=== PATIENT | female | born 1985 | race Caucasian/White ===

== ENCOUNTER 2021-02-12 09:16 | Emergency (ER) | payer MEDICAID ==
[~2021-02-12] VITALS: Ht 160 cm; Wt 95.5 kg
[2021-02-12 09:58] VITALS: BP 155/103
== END 2021-02-12 11:51 | disposition home or self-care (01) ==
LOC: ER 09:17
DX: M79.675 Pain in left toe(s) (principal)
CPT/HCPCS: 73660; 99283

== ENCOUNTER 2021-08-07 15:48 | Emergency (ER) | payer MEDICAID ==
[~2021-08-07] VITALS: Ht 160 cm; Wt 90.9 kg
[~2021-08-07 15:48] MED LIST: BUPR100T13 PO; DOCU100C40 PO; VALA500T PO
[2021-08-07 18:29] VITALS: BP 142/96
== END 2021-08-07 19:55 | disposition home or self-care (01) ==
LOC: ER 15:48
DX: H65.93 Unspecified nonsuppurative otitis media, bilateral (principal); R42 Dizziness and giddiness; R11.0 Nausea; R20.2 Paresthesia of skin; G43.909 Migraine, unspecified, not intractable, without status migrainosus; Z79.899 Other long term (current) drug therapy; Z79.2 Long term (current) use of antibiotics; Z90.49 Acquired absence of other specified parts of digestive tract
CPT/HCPCS: 93005; 99283

== ENCOUNTER 2023-03-30 01:39 | Emergency (ER) | payer MEDICAID ==
[~2023-03-30] VITALS: Ht 160 cm; Wt 94.5 kg
[2023-03-30] MEDS ORDERED: normal saline 1000ML IV soln IVB ONE (02:10)
[2023-03-30 03:13] LABS: BASOPHILS # (AUTO) 0.1 X10'3 (0-0.2); BASOPHILS % (AUTO) 0.6 % (0-1); EOSINOPHILS % (AUTO) 0.4 % (0-6); HEMATOCRIT 36.3 % (35.0-45.0); HEMOGLOBIN 12.2 g/dl (12.0-16.0); LYMPHOCYTES # (AUTO) 1.4 X10'3 (1.1-4.8); LYMPHOCYTES % (AUTO) 14.9 % (21-51); MEAN CORPUSCULAR HEMOGLOBIN 29.6 PG (27.0-31.0); MEAN CORPUSCULAR HGB CONC 33.7 g/dL (33.0-36.5); MEAN CORPUSCULAR VOLUME 87.9 FL (78-98); MEAN PLATELET VOLUME 8.2 FL (7.4-10.4); MONOCYTES % (AUTO) 10.1 % (2-12); NEUTROPHILS # (AUTO) 7.1 X10'3 (1.8-7.7); PLATELET COUNT 329 X10'3 (140-440); RED BLOOD COUNT 4.13 X10'6 (4.20-5.60); WHITE BLOOD COUNT 9.5 X10'3 (4.5-11.0)
[2023-03-30 03:30] LABS: ALBUMIN 3.4 G/DL (3.4-5.0); ANION GAP 10 (8-16); BLOOD UREA NITROGEN 7 MG/DL (7-18); BUN/CREATININE RATIO 8.9 (10.0-20.0); CALCIUM 8.5 MG/DL (8.5-10.1); CHLORIDE 101 MMOL/L (99-107); CREATININE 0.79 MG/DL (0.40-0.90); GLUCOSE 108 MG/DL (70-104); POTASSIUM 3.1 MMOL/L (3.5-5.1); PRO BRAIN NATRIURETIC PEPTIDE 35 PG/ML (0-125); SODIUM 136 MMOL/L (135-145); TOTAL CARBON DIOXIDE 24.7 MMOL/L (24-32); eCRCL 82 ML/MIN; eGFR 83 ML/MIN
[2023-03-30] MEDS ORDERED: AZIT500T9 PO (03:40)
[2023-03-30] MEDS ORDERED: azithromycin 250mg tablet PO ONE (03:45)
[2023-03-30 04:00] VITALS: BP 121/76; PULSE 98; RESP 16; TEMP 98.3; O2SAT 95
== END 2023-03-30 04:02 | disposition home or self-care (01) ==
LOC: ER 01:39
DX: J18.9 Pneumonia, unspecified organism (principal); Z20.822 Contact with and (suspected) exposure to COVID-19; R79.1 Abnormal coagulation profile; Z79.2 Long term (current) use of antibiotics; Z79.899 Other long term (current) drug therapy
CPT/HCPCS: 36415; 71045; 80048; 83605; 83880; 84484; 85025; 85610; 87040; 87502; 87503; 87811; 93005; 96360; 99285; J7030